=== PATIENT | male | born 1945 | race Caucasian/White ===

== ENCOUNTER 2017-10-04 10:57 | Day surgery (SDC) | payer OTHER ==
[2017-09-26 11:47] VITALS: BMI 30.1
[2017-10-04 13:43] VITALS: TEMP 97.8
[2017-10-04 14:45] VITALS: BP 130/67; PULSE 83
--- NOTE | 2017-10-06 16:41 | PATH ---
Surgical Pathology Report Patient Name: CARLOS ALBERTO LANCASTER [facility]. Rec. #: [id number] /Age/Gender: 1945 (Age: 72) / M Account: [id number] Location: REPLACED BY [facility] Taken: 10/04/2017 Received: 10/04/2017 Reported: 10/06/2017 Physicians: Mallika Brown M.D. Specimen(s) Received A: BX DUODENUM B: BX ANTRUM C: GE JUNCTION Clinical History Abdominal pain, gastroparesis, Velásquez's esophagus Postoperative diagnosis: Gastritis, Velásquez's Final Diagnosis A. DUODENUM, BIOPSY: DUODENAL MUCOSA WITH NO DIAGNOSTIC ABNORMALITIES. B. ANTRUM, BIOPSY: GASTRIC MUCOSA WITH MILD CHRONIC GASTRITIS. IMMUNOSTAIN IS NEGATIVE FOR H. PYLORI ORGANISMS. C. GE JUNCTION, BIOPSY: GASTROESOPHAGEAL JUNCTIONAL MUCOSA SHOWING MILD ACTIVE CHRONIC INFLAMMATION, IN A BACKGROUND OF CHANGES CONSISTENT WITH REFLUX ESOPHAGITIS. NEGATIVE FOR INTESTINAL METAPLASIA. SEPARATE ONE FRAGMENT OF GASTRIC MUCOSA WITH MILD CHRONIC INFLAMMATION AND FOCAL DILATED GLANDS. Electronically Signed Conchita Mcgraw M.D. Gross Description A. Received in formalin, labeled "duodenum" are 2 juarez, irregular portions of soft tissue measuring 0.2 and 0.3 cm. in greatest dimension. The specimens are submitted in toto in one cassette. B. Received in formalin, labeled "antrum" are 2 juarez, irregular portions of soft tissue averaging 0.3 cm. in greatest dimension. The specimens are submitted in toto in one cassette. C. Received in formalin, labeled "GE junction" are 2 juarez, irregular portions of soft tissue measuring 0.5 and 0.6 cm. in greatest dimension. The specimens are submitted in toto in one cassette. 10/[facility]
== END 2017-10-04 14:45 | disposition home or self-care (01) ==
LOC: FASU-ENDO 10:57
PROVIDERS: ATTEND Internal Medicine Gastroenterology
PROC: 0DB68ZX Excision of Stomach, Via Natural or Artificial Opening Endoscopic, Diagnostic (ICD-10-PCS; 2017-10-04)
PROC: 0DB18ZX Excision of Upper Esophagus, Via Natural or Artificial Opening Endoscopic, Diagnostic (ICD-10-PCS; 2017-10-04)
PROC: 0DB28ZX Excision of Middle Esophagus, Via Natural or Artificial Opening Endoscopic, Diagnostic (ICD-10-PCS; 2017-10-04)
PROC: 0DB38ZX Excision of Lower Esophagus, Via Natural or Artificial Opening Endoscopic, Diagnostic (ICD-10-PCS; 2017-10-04)
PROC: 0DB98ZX Excision of Duodenum, Via Natural or Artificial Opening Endoscopic, Diagnostic (ICD-10-PCS; principal; 2017-10-04 13:18)
DX: Z13.810 Encounter for screening for upper gastrointestinal disorder (principal); K22.70 Barrett's esophagus without dysplasia; K29.50 Unspecified chronic gastritis without bleeding; K21.0 Gastro-esophageal reflux disease with esophagitis
CPT/HCPCS: 82962; 88305-TC; 88342-TC

== ENCOUNTER → 2018-10-31 | Day surgery (SDC) | payer OTHER ==
[2018-10-30 14:10] VITALS: BMI 28.7
[~2018-10-31] MED LIST: LIDOCAINE HCL/PF 2% SDV 5ML VIAL ONE; PROPOFOL 20 ML ONE
[2018-10-31 10:36] VITALS: BP 156/75; PULSE 82; TEMP 97.9
[2018-10-31 12:58] LABS: ACTIVATED PTT 29.6 SECONDS (25.2-36.5)
[2018-10-31 13:02] LABS: INR 1.2 (0.82-1.09); PROTHROMBIN TIME (PATIENT) 13.4 SEC (10.2-13.0)
== END | disposition home or self-care (01) ==
LOC: FASU-ENDO 10:12
PROVIDERS: ATTEND Internal Medicine Gastroenterology
PROC: 0DJ08ZZ Inspection of Upper Intestinal Tract, Via Natural or Artificial Opening Endoscopic (ICD-10-PCS; principal; 2018-10-31 13:15)
DX: Z87.19 Personal history of other diseases of the digestive system (principal); Z53.09 Procedure and treatment not carried out because of other contraindication
CPT/HCPCS: 36415; 82962; 85610; 85730